=== PATIENT | female | born 1970 | race Caucasian/White ===

== ENCOUNTER → 2016-04-12 | Outpatient (CLI) | payer OTHER ==
[~2016-04-12] VITALS: Ht 168.7 cm; Wt 67.6 kg
[~2016-04-12] MED LIST: LEXAPRO20 MG PO; LINZESS145 MCG PO; NEXIUM40 MG PO; PRILOSEC40 MG PO; TRAZODONE HCL150 MG PO; WELLBUTRIN XL150 MG PO; XANAX1 MG PO
== END | disposition home or self-care (01) ==
LOC: AMB 07:55
DX: R10.9 Unspecified abdominal pain (principal); K21.9 Gastro-esophageal reflux disease without esophagitis; K20.9 Esophagitis, unspecified; Z87.11 Personal history of peptic ulcer disease; K44.9 Diaphragmatic hernia without obstruction or gangrene; R14.0 Abdominal distension (gaseous); F41.8 Other specified anxiety disorders; F43.10 Post-traumatic stress disorder, unspecified; N30.10 Interstitial cystitis (chronic) without hematuria
CPT/HCPCS: 88305; B4087; J2250